=== PATIENT | male | born 1975 | race Caucasian/White ===

== ENCOUNTER 2024-10-20 03:54 | Emergency (ER) | payer OTHER ==
[~2024-10-20] VITALS: Ht 170.2 cm; Wt 72.6 kg
[~2024-10-20 03:54] MED LIST: BUPR-96 PO; DIVA500T2 PO; RISP1TAB7 PO
[2024-10-20] MEDS ORDERED: PRAZ1CAP5 PO (04:45)
[2024-10-20] MEDS ORDERED: NYST15CR2 TP (04:45)
[2024-10-20] MEDS ORDERED: BUPR300T52 PO (04:45)
[2024-10-20 05:11] VITALS: BP 135/83; O2SAT 99
== END 2024-10-20 05:13 | disposition home or self-care (01) ==
LOC: ER 03:57
DX: F20.9 Schizophrenia, unspecified (principal); Z59.00 Homelessness unspecified; Z76.0 Encounter for issue of repeat prescription; Z79.899 Other long term (current) drug therapy
CPT/HCPCS: A4606; A4663